=== PATIENT | female | born 1995 | race American Indian/Alaskan Native ===

== ENCOUNTER 2021-02-16 12:23 | Emergency (ER) | payer SELFPAY ==
[2021-02-16 14:01] VITALS: BP 118/67
--- NOTE | 2021-02-16 14:05 | Event Note ---
ED Screening Note Date of service: 02/16/21 Time: 14:04 ED Screening Note: 25-year-old female presents to the ER today with complaints of abdominal pain for the past 3 days. She reports associated nausea and vomiting. This initial assessment/diagnostic orders/clinical plan/treatment(s) is/are subject to change based on patients health status, clinical progression and re- assessment by fellow clinical providers in the ED. Further treatment and workup at subsequent clinical providers discretion. Patient/guardian urged not to elope from the ED as their condition may be serious if not clinically assessed and managed. Initial orders include: Abdominal pain order set
[2021-02-16 15:18] LABS: Bacteria,Urine 2+ /HPF (Negative); Bilirubin,Urine NEG (Negative); Blood,Urine LG (Negative); Color,Urine Yellow (Yellow); Mucus,Urine 1+ /HPF; Protein,Urine <15 mg/dL mg/dL (Negative); Urobilinogen,Urine < 2.0 mg/dL (<2.0)
[2021-02-16 15:43] LABS: Basophils % (Auto) 0.2 % (0.0-1.8); Eosinophils # (Auto) 0.2 K/mm3 (0.0-0.4); Eosinophils % (Auto) 1.6 % (0.0-4.3); Hematocrit 34.8 % (30.3-42.9); Hemoglobin 11.7 gm/dl (10.1-14.3); Lymphocytes # (Auto) 2.5 K/mm3 (1.2-5.4); Lymphocytes % (Auto) 19.8 % (13.4-35.0); Mean Corpuscular HGB Conc 34 % (30-34); Mean Corpuscular Volume 104 fl (79-97); Monocytes # (Auto) 0.7 K/mm3 (0.0-0.8); Monocytes % (Auto) 5.4 % (0.0-7.3); Platelet Count 180 K/mm3 (140-440); Red Blood Count 3.36 M/mm3 (3.65-5.03); Red Cell Distribution Width 13.3 % (13.2-15.2)
[2021-02-16 16:07] LABS: Alanine Aminotransferase 7 units/L (7-56); Albumin 4.1 g/dL (3.9-5); BUN/Creatinine Ratio 12; Blood Urea Nitrogen 7 mg/dL (7-17); Hemolysis Index 14
[2021-02-16] MEDS ORDERED: ONDANSETRON 4 MG ODT TAB PO ONE (19:26)
[2021-02-16] MEDS ORDERED: FAMOTIDINE 20 MG TAB PO ONE (19:26)
[2021-02-16] MEDS ORDERED: DICYCLOMINE 20 MG TAB PO ONE (19:26)
[2021-02-16] MEDS ORDERED: LIDOCAINE-MPF (1%) 10 MG/1 ML VIAL 5 ML INFILTRATI ONE (19:27)
--- NOTE | 2021-02-16 19:33 | Emergency Department Report ---
ED Abdominal Pain HPI - General Chief Complaint: Abdominal Pain Stated Complaint: ABD PAIN Time Seen by Provider: 02/16/21 14:01 Source: patient Mode of arrival: Ambulatory Limitations: No Limitations - History of Present Illness Initial Comments: Patient is a 25-year-old -L[place] female with no past medical history presents to the ED with complaint of acute onset persistent severe diffuse abdominal pain that radiates diffusely to the lower abdomen with intractable nausea and vomiting for the last 5 days. Patient states that the symptoms have been persistent, constant and have worsened in the last 2 days. Patient states that she has not been able to keep anything down because of intractable nausea and vomiting and worsening abdominal pain. Patient denies diarrhea, fever, chills, dysuria, urinary frequency and urgency, low back pain, chest pain, shortness of breath, cough, sore throat, hemoptysis, hematemesis, hematochezia, dizziness or syncope, vaginal bleeding, vaginal discharge or dyspareunia. MD Complaint: abdominal pain, other (Nausea and vomiting) -: Sudden, days(s) (5) Location: diffuse, RLQ, suprapubic, L flank, R flank Radiation: LLQ, RLQ, suprapubic, L flank, R flank Migration to: no migration Severity: severe Severity scale (0 -10): 8 Quality: cramping, aching, sharp Consistency: constant Improves With: nothing Worsens With: eating, vomiting Associated Symptoms: denies other symptoms, nausea, vomiting, anorexia. denies: diarrhea, fever, chills, constipation, dysuria, hematemesis, hematochezia, melena, hematuria, syncope, other - Related Data LMP Date: 01/25/21 Previous Rx's Medication Instructions Recorded Last Taken Type Doxycycline Hyclate 100 mg PO Q12H #28 tablet. 02/16/21 Unknown Rx Fluconazole [Diflucan TAB] 200 mg PO QDAY #1 tablet 02/16/21 Unknown Rx Ibuprofen [Motrin] 600 mg PO Q8H PRN #30 tablet 02/16/21 Unknown Rx Ondansetron [Zofran Odt] 4 mg PO Q8HR PRN #20 tab.rapdis 02/16/21 Unknown Rx cephALEXin [Keflex] 500 mg PO Q8HR #30 cap 02/16/21 Unknown Rx metroNIDAZOLE [Flagyl] 500 mg PO Q12HR #20 tab 05/23/21 Unknown Rx traMADoL [Ultram] 50 mg PO Q6HR PRN #12 tablet 02/16/21 Unknown Rx Allergies Allergy/AdvReac Type Severity Reaction Status Date / Time No Known Allergies Allergy Verified 09/12/18 12:53 ED Review of Systems ROS: Stated complaint: ABD PAIN Other details as noted in HPI Constitutional: denies: chills, fever Eyes: denies: eye pain, eye discharge, vision change ENT: denies: ear pain, throat pain Respiratory: denies: cough, shortness of breath, wheezing Cardiovascular: denies: chest pain, palpitations Endocrine: no symptoms reported Gastrointestinal: abdominal pain, nausea, vomiting. denies: diarrhea Genitourinary: denies: urgency, dysuria, discharge Musculoskeletal: denies: back pain, joint swelling, arthralgia Skin: denies: rash, lesions Neurological: denies: headache, weakness, paresthesias Psychiatric: denies: anxiety, depression Hematological/Lymphatic: denies: easy bleeding, easy bruising ED Past Medical Hx - Past Medical History Previous Medical History?: No - Surgical History Past Surgical History?: No - Social History Smoking Status: Current Every Day Smoker Substance Use Type: None - Medications Home Medications: Home Medications Medication Instructions Recorded Confirmed Last Taken Type Doxycycline Hyclate 100 mg PO Q12H #28 tablet. 02/16/21 Unknown Rx Fluconazole [Diflucan TAB] 200 mg PO QDAY #1 tablet 02/16/21 Unknown Rx Ibuprofen [Motrin] 600 mg PO Q8H PRN #30 tablet 02/16/21 Unknown Rx Ondansetron [Zofran Odt] 4 mg PO Q8HR PRN #20 tab.rapdis 02/16/21 Unknown Rx cephALEXin [Keflex] 500 mg PO Q8HR #30 cap 02/16/21 Unknown Rx metroNIDAZOLE [Flagyl] 500 mg PO Q12HR #20 tab 02/16/21 Unknown Rx traMADoL [Ultram] 50 mg PO Q6HR PRN #12 tablet 02/16/21 Unknown Rx ED Physical Exam - General Limitations: No Limitations General appearance: alert, in no apparent distress - Head Head exam: Present: atraumatic, normocephalic, normal inspection - Eye Eye exam: Present: normal appearance, PERRL, EOMI Pupils: Present: normal accommodation - ENT ENT exam: Present: normal exam, normal orophraynx, mucous membranes moist, TM's normal bilaterally, normal external ear exam - Neck Neck exam: Present: normal inspection, full ROM - Respiratory Respiratory exam: Present: normal lung sounds bilaterally. Absent: respiratory distress, wheezes, rales, rhonchi, stridor, chest wall tenderness, accessory muscle use, decreased breath sounds, prolonged expiratory - Cardiovascular Cardiovascular Exam: Present: regular rate, normal rhythm, normal heart sounds. Absent: systolic murmur, diastolic murmur, rubs, gallop - GI/Abdominal GI/Abdominal exam: Present: soft, tenderness (Palpable diffuse abdominal tenderness, worse in the lower abdomen with guarding), guarding, normal bowel sounds. Absent: rebound, hyperactive bowel sounds, hypoactive bowel sounds, organomegaly - Bi-manual exam: Present: other (Pelvic exam deferred) - Extremities Exam Extremities exam: Present: normal inspection, full ROM, normal capillary refill - Back Exam Back exam: Present: normal inspection, full ROM. Absent: tenderness, CVA tenderness (R), CVA tenderness (L), muscle spasm, paraspinal tenderness, vertebral tenderness - Neurological Exam Neurological exam: Present: alert, oriented X3, CN II-XII intact, normal gait, reflexes normal - Psychiatric Psychiatric exam: Present: normal affect, normal mood - Skin Skin exam: Present: warm, dry, intact, normal color. Absent: rash ED Course Vital Signs 02/16/21 13:52 Temperature 97.7 F Pulse Rate 70 Respiratory 18 Rate Blood Pressure 118/67 O2 Sat by Pulse 100 Oximetry ED Medical Decision Making - Lab Data Result diagrams: 02/16/21 14:53 02/16/21 14:53 - Radiology Data Radiology results: report reviewed, image reviewed [facility] [address] [place] [address] Cat Scan Report Signed Patient: ELIZABETH MIKE MR#: [id number] : 1995 Acct:[id number] Age/Sex: 25 / F ADM Date: 02/16/21 Loc: ED Attending Dr: Ordering Physician: JO-ANN TAMAYO Date of Service: 02/16/21 Procedure(s): CT abdomen pelvis w con Accession Number(s): [id number] cc: JO-ANN TAMAYO CT ABDOMEN AND PELVIS WITH CONTRAST INDICATION: Abdominal pain, N/V. TECHNIQUE: Axial CT images were obtained through the abdomen and pelvis after 75 cc IV contrast. All CT scans at this location are performed using CT dose reduction for ALARA by means of automated exposure control. COMPARISON: None available. FINDINGS: LOWER CHEST: No significant abnormality. LIVER: No significant abnormality. GALLBLADDER: No significant abnormality. BILE DUCTS: No significant abnormality. PANCREAS: No significant abnormality. SPLEEN: No significant abnormality. ADRENALS: No significant abnormality. RIGHT KIDNEY and URETER: No significant abnormality. LEFT KIDNEY and URETER: No significant abnormality. STOMACH and SMALL BOWEL: No significant abnormality. COLON: No significant abnormality. APPENDIX: No significant abnormality. PERITONEUM: No free fluid. No free air. No fluid collection. LYMPH NODES: No significant adenopathy. AORTA and ARTERIES: No significant abnormality. IVC and VEINS: No significant abnormality. URINARY BLADDER: No significant abnormality. REPRODUCTIVE ORGANS: Tubular structure right adnexa region represent h ydrosalpinx/tubo-ovarian abscess ADDITIONAL FINDINGS: None. SKELETAL SYSTEM: No significant abnormality. IMPRESSION: 1. Questionable pelvic inflammatory disease/hydrosalpinx right adnexa region. Recommend pelvic ultrasound and clinical correlation and 2. No other acute inflammatory process or bowel obstruction Signer Name: Pillo Rayo MD Signed: 02/16/2021 9:02 PM Workstation Name: [id number] Transcribed By: TL Dictated By: Pillo Rayo MD Electronically Authenticated By: Pillo Rayo MD Signed Date/Time: 02/16/212101 DD/ 57 TD/TT: [facility] [address] [place] [address] Ultrasound Report Signed Patient: ELIZABETH MIKE MR#: [id number] : 1995 Acct:[id number] Age/Sex: 25 / F ADM Date: 02/16/21 Loc: ED Attending Dr: Ordering Physician: JO-ANN TAMAYO Date of Service: 02/16/21 Procedure(s): US transvaginal Accession Number(s): [id number] cc: JO-ANN TAMAYO ULTRASOUND PELVIS INDICATION: Pelvic pain, r/o Tubovarian abscess. TECHNIQUE: Transabdominal. Duplex Color Doppler used: Yes. COMPARISON: None available FINDINGS: Uterus: Present. Size: 10.1 x 3.8 x 4.6 cm. Endometrial complex: Normal measuring 9 mm. Mass lesions: None. Additional findings: None. Right Ovary -- Normal. Blood flow: Normal. Cyst or mass: 2.1 x 1.1 x 2.3 cm right ovarian follicular cyst. No hydrosalpinx Left Ovary-- Normal. Blood flow: Normal. Cyst or mass: None. Urinary Bladder: Normal. Free Fluid: None. Additional Findings: None. IMPRESSION: 1. Simple 2.3 cm right ovarian follicular cyst. No hydrosalpinx or free fluid Signer Name: Pillo Rayo MD Signed: 02/16/2021 10:09 PM Workstation Name: [id number] Transcribed By: TL Dictated By: Pillo Rayo MD Electronically Authenticated By: Pillo Rayo MD Signed Date/Time: 02/16/212208 DD/ 07 TD/TT: - Medical Decision Making This is a 25-year-old -L[place] female with no past medical history presents to the ED with complaint of acute onset persistent severe diffuse abdominal pain that radiates diffusely to the lower abdomen with intractable nausea and vomiting for the last 5 days. Patient states that the symptoms have been persistent, constant and have worsened in the last 2 days. Patient states that she has not been able to keep anything down because of intractable nausea and vomiting and worsening abdominal pain.in the ED, patient is alert and oriented x3 and is not in any distress. Patient however appears to be in significant pain. Lab test results were reviewed and showed acute leukocytosis of 12,500 and significant urinary tract infection in urinalysis. The abdomen pelvis CT scan with contrast showed questionable pelvic inflammatory disease/hydrosalpinx right adnexa region. Recommend pelvic ultrasound and clinical correlation and no other acute inflammatory process or bowel obstruction. The transvaginal ultrasound showed a simple 2.3 cm right ovarian follicular cyst. No hydrosalpinx or free fluid. Patient was treated for pain in the ED and also given antibiotics. On reevaluation, patient's pain is well controlled medications. Patient was discharged home on antibiotics for suspected acute PID, right ovarian cyst, acute urinary tract infection and nausea and vomiting. Patient is advised to follow-up with her [employer] physician in 3 to 5 days for reevaluation or return to the ED immediately if symptoms get worse. - Differential Diagnosis Appendicitis; colitis; gastroenteritis; ovarian cyst; UTI; ; PID Critical care attestation.: If time is entered above; I have spent that time in minutes in the direct care of this critically ill patient, excluding procedure time. ED Disposition Clinical Impression: Nausea and vomiting in adult patient, Acute urinary tract infection, Cyst of ri ght ovary, Acute pelvic inflammatory disease (PID) Abdominal pain Qualifiers: Abdominal location: generalized Qualified Code(s): R10.84 - Generalized abdominal pain Disposition: - TO HOME OR SELFCARE Is pt being admited?: No Does the pt Need Aspirin: No Condition: Stable Instructions: Nausea and Vomiting, Adult, [id number], Urinary Tract Infection, Adult, [id number], Abdominal Pain, Adult, [id number], Abdominal Pain (ED), Ovarian Cyst, [id number], Pelvic Inflammatory Disease, [id number] Additional Instructions: All lab test results were reviewed and are all nonactionable except for leukocytosis of 12,300 and significant urinary tract infection in urinalysis. Transvaginal ultrasound showed a right ovarian cyst. Abdomen pelvis CT scan with contrast showed no acute abnormalities except for a questionable pelvic inflammatory disease/hydrosalpinx right adnexa region. Recommend pelvic ultrasound and clinical correlation. Otherwise no other acute inflammatory process or bowel obstruction. Therefore take medication with food, drink plenty of fluids and follow-up with your primary care physician or [employer] physician in 5 to 7 days for reevaluation. Return to the ED immediately if symptoms get worse. Prescriptions: Fluconazole [Diflucan TAB] 200 mg PO QDAY #1 tablet Doxycycline Hyclate 100 mg PO Q12H #28 tablet.dr metroNIDAZOLE [Flagyl] 500 mg PO Q12HR #20 tab cephALEXin [Keflex] 500 mg PO Q8HR #30 cap Ibuprofen [Motrin] 600 mg PO Q8H PRN #30 tablet PRN Reason: Pain traMADoL [Ultram] 50 mg PO Q6HR PRN #12 tablet PRN Reason: Pain Ondansetron [Zofran Odt] 4 mg PO Q8HR PRN #20 tab.rapdis PRN Reason: Nausea Referrals: ANTONIO JANE MD [Staff Physician] - 7-10 days Time of Disposition: 22:19 Print Language: SERBIAN
--- NOTE | 2021-02-16 21:07 | Cat Scan Report ---
CT ABDOMEN AND PELVIS WITH CONTRAST INDICATION: Abdominal pain, N/V. TECHNIQUE: Axial CT images were obtained through the abdomen and pelvis after 75 cc IV contrast. All CT scans a t this location are performed using CT dose reduction for ALARA by means of automated exposure contro l. COMPARISON: None available. FINDINGS: LOWER CHEST: No significant abnormality. LIVER: No significant abnormality. GALLBLADDER: No significant abnormality. BILE DUCTS: No significant abnormality. PANCREAS: No significant abnormality. SPLEEN: No significant abnormality. ADRENALS: No significant abnormality. RIGHT KIDNEY and URETER: No significant abnormality. LEFT KIDNEY and URETER: No significant abnormality. STOMACH and SMALL BOWEL: No significant abnormality. COLON: No significant abnormality. APPENDIX: No significant abnormality. PERITONEUM: No free fluid. No free air. No fluid collection. LYMPH NODES: No significant adenopathy. AORTA and ARTERIES: No significant abnormality. IVC and VEINS: No significant abnormality. URINARY BLADDER: No significant abnormality. REPRODUCTIVE ORGANS: Tubular structure right adnexa region represent hydrosalpinx/tubo-ovarian absces s ADDITIONAL FINDINGS: None. SKELETAL SYSTEM: No significant abnormality. IMPRESSION: 1. Questionable pelvic inflammatory disease/hydrosalpinx right adnexa region. Recommend pelvic ultras ound and clinical correlation and 2. No other acute inflammatory process or bowel obstruction Signer Name: Pillo Rayo MD Signed: 02/16/2021 9:02 PM Workstation Name: [id number]
[2021-02-16] MEDS ORDERED: AZITHROMYCIN 250 MG TAB PO ONE (21:12)
--- NOTE | 2021-02-16 22:14 | Ultrasound Report ---
ULTRASOUND PELVIS INDICATION: Pelvic pain, r/o Tubovarian abscess. TECHNIQUE: Transabdominal. Duplex Color Doppler used: Yes. COMPARISON: None available FINDINGS: Uterus: Present. Size: 10.1 x 3.8 x 4.6 cm. Endometrial complex: Normal measuring 9 mm. Mass lesions: None. Additional findings: None. Right Ovary -- Normal. Blood flow: Normal. Cyst or mass: 2.1 x 1.1 x 2.3 cm right ovarian follicular cyst. No hydrosalpinx Left Ovary-- Normal. Blood flow: Normal. Cyst or mass: None. Urinary Bladder: Normal. Free Fluid: None. Additional Findings: None. IMPRESSION: 1. Simple 2.3 cm right ovarian follicular cyst. No hydrosalpinx or free fluid Signer Name: Pillo Rayo MD Signed: 02/16/2021 10:09 PM Workstation Name: [id number]
[2021-02-16] MEDS ORDERED: KETOROLAC 30 MG/1 ML INJ IM ONE (22:18)
== END 2021-02-17 01:55 | disposition home or self-care (01) ==
LOC: ED 12:23
DX: R11.2 Nausea with vomiting, unspecified (principal); N39.0 Urinary tract infection, site not specified; N83.201 Unspecified ovarian cyst, right side; N73.9 Female pelvic inflammatory disease, unspecified; F17.200 Nicotine dependence, unspecified, uncomplicated; R10.32 Left lower quadrant pain; R10.31 Right lower quadrant pain; Z79.899 Other long term (current) drug therapy
CPT/HCPCS: 36415; 74177; 76830; 80053; 81001; 83690; 84703; 85025; 87076; 87086; 87186; 99284; Q9967